=== PATIENT | female | born 1940 | race Caucasian/White ===

== ENCOUNTER 2018-01-11 12:53 | Inpatient (IN) ==
[2018-01-11] MEDS ORDERED: Sod Chloride 0.9% Inj 1,000 ML IV.SIG ONE (16:36)
--- NOTE | 2018-01-11 16:59 | XR ---
EXAM DATE: 01/11/2018 4:52 PM EST AGE/SEX: 77 years / Female INDICATIONS: Cough and shortness of breath. CLINICAL DATA: This is the patient's initial encounter. Patient reports that signs and symptoms have been present for 1 week and indicates a pain score of 0/10. MEDICAL/SURGICAL HISTORY: Carcinoma, lung. . Infusaport. COMPARISON: No prior exams available for comparison. FINDINGS: Right IJ [id number] in place. Patchy bilateral lower lobe airspace disease with likely small right pleural effusion. Cardiomediastinal contours are within normal limits given portable technique. Prio r complex thoracolumbar fixation partially imaged on this exam. Osseous structures are otherwise artur sly intact. CONCLUSION: 1. Small right pleural effusion with associated patchy right lower lobe airspace disease. 2. Mild patchy left lower lobe airspace disease which may reflect atelectasis. Electronically signed by: Meir Castanon MD 01/11/2018 4:58 PM EST
--- NOTE | 2018-01-11 17:13 | ED ---
HPI General Chief complaint: Weakness Stated complaint: weakness Time Seen by Provider: 01/11/18 15:37 Source: patient Mode of arrival: ambulatory Limitations: no limitations History of Present Illness HPI Narrative: 77-year-old female presents the ED for evaluation of worsening shortness of breath and weakness. 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 She states that she lives full-time in [place] and has been undergoing treatment there until October. She endorses several rounds of chemotherapy with different medications. She states that despite this chemotherapy her lung mass has continued to grow. She states that she saw her oncologist just before coming to [place] for the winter. She told him at that time that she does not wish to continue with chemotherapy treatment. She arrived here in mid December. On presentation she endorses occasional dizziness. She endorses chronic nonproductive cough. She endorses some swelling in the lower extremities. She endorses decreased appetite. She endorses dark stools which she attributes to taking a daily iron pill. She denies fever, chills, headaches, nausea, vomiting, chest pain, palpitations, abdominal pain, dysuria, weakness of the extremities. I spoke with the patient regarding her expectations for today's visit. She is hoping to be discharged. She is open to evaluation by another oncologist. She does not want hospice services at this time. Related Data Home Medications Medication Instructions Recorded Confirmed No Known Home Medications 01/11/18 01/11/18 Allergies Allergy/AdvReac Type Severity Reaction Status Date / Time naproxen Allergy Severe rash Verified 01/11/18 20:09 levofloxacin Allergy Unknown Rash Verified 01/11/18 20:09 Review of Systems ROS: all other systems reviewed are negative [facility] Medical History Medical History Breast cancer (Acute) Lung cancer (Acute) Surgical History Surgical History History of back surgery (Acute) History of surgery on arm (Acute) Social History Social History Substance History: No History of Abuse Smoking Status: Former smoker How Often Do You Have a Drink Containing Alcohol: 2 to 4 times a month Recent Travel in [facility] within the Last 8 Weeks: No Recent Out of Country Travel within the Last 8 Weeks: No Immunization History Tetanus Immunization: Unsure Exam Narrative Exam Narrative: GENERAL: Well-nourished, thin white female in no acute distress. SKIN: Focused skin assessment warm/dry. Port implanted in the right chest. HEAD: Atraumatic. Normocephalic. EYES: Pupils equal and round. No scleral icterus. No injection or drainage. ENT: No nasal bleeding or discharge. Mucous membranes pink and moist. NECK: Trachea midline. No JVD. CARDIOVASCULAR: Regular rate and rhythm. No murmur appreciated. RESPIRATORY: No accessory muscle use. Clear to auscultation. Diminished breath sounds in RLL. GASTROINTESTINAL: Abdomen soft, non-tender, nondistended. Hepatic and splenic margins not palpable. MUSCULOSKELETAL: No obvious deformities. No clubbing. No cyanosis. Trace edema in the bilateral lower extremities. NEUROLOGICAL: Awake and alert. No obvious cranial nerve deficits. Motor grossly within normal limits. Normal speech. PSYCHIATRIC: Appropriate mood and affect; insight and judgment normal. Course Initial Documented Vital Signs Temperature 98.6 F 01/11/18 12:59 Pulse Rate 131 H 01/11/18 12:59 Respiratory Rate 16 01/11/18 12:59 Blood Pressure 162/75 H 01/11/18 12:59 Pulse Oximetry 98 01/11/18 12:59 Last Documented Vital Signs Temperature 98.6 F 01/11/18 12:59 Pulse Rate 108 H 01/11/18 19:00 Respiratory Rate 20 01/11/18 19:00 Blood Pressure 143/80 H 01/11/18 19:00 Pulse Oximetry 94 L 01/11/18 19:54 Medical Decision Making [facility] Narrative Medical decision making narrative: 77-year-old female with PMH of stage IV lung cancer presents the ED for evaluation of worsening dyspnea on exertion, decreased appetite and weakness. Patient lives full-time in [place] and mcnulty in [place]. She endorses undergoing several rounds of chemotherapy but states that she told her oncologist at last visit that she did not want any more treatment. She does have a DNR she states is with her nephew who is in [place]. She declines hospice at this time. She is open to oncology consult. Patient's tachycardic and hypertensive on presentation. O2 sats 94% on room air with respiratory rate of 20. On exam there is greatly diminished lung sounds in the right lower lobe. IV was established. Patient was administered a liter normal saline. Basic lab work without acute findings. Chest x-ray concerning for pneumonia. Patient was administered vancomycin, azithromycin and cefepime. CTA reveals mediastinal tumor with occlusion of the bronchus and collapse of the right lower lobe. I discussed the results of the workup with the patient as well as the recommendation for admission. Patient and her family are agreeable. Oncology consult placed. I spoke with Dr. Hou who agrees to accept the patient to the medicine service. The patient's medical record was requested from [facility] and has been scanned into the record. Medical Screen Exam Complete: Yes Emergency Medical Condition: Yes Medical Records Medical records reviewed: Yes I reviewed the patient's medical records. Medical records arrived from [facility] clinic. Primary care is Karthikeyan Noland, oncologist Fabio Campbell. Primary diagnosis adenocarcinoma of lung, stage IV. Lab work on 11/03 reveals hemoglobin of 9.3. This was scanned into the patient's record here. Lab Data Result diagrams: 01/11/18 17:21 01/11/18 17:21 Lab Results 01/11/18 01/11/18 01/11/18 Range/Units 17:21 17:21 17:21 WBC 9.1 (4.0-11.0) th/mm3 RBC 2.80 L (4.00-5.30) mil/mm3 Hgb 8.6 L (11.6-15.3) gm/dL Hct 23.9 L (35.0-46.0) % MCV 85.3 (80.0-100.0) fL MCH 30.6 (27.0-34.0) pg MCHC 35.8 (32.0-36.0) % RDW 17.5 H (11.6-17.2) % Plt Count 372 (150-450) th/mm3 MPV 6.4 L (7.0-11.0) fL Neut % (Auto) 65.6 (16.0-70.0) % Lymph % (Auto) 25.4 (9.0-44.0) % Sabine % (Auto) 8.3 H (0.0-8.0) % Eos % (Auto) 0.3 (0.0-4.0) % Baso % (Auto) 0.4 (0.0-2.0) % Neut # (Auto) 5.9 (1.8-7.7) th/mm3 Lymph # (Auto) 2.3 (1.0-4.8) th/mm3 Sabine # (Auto) 0.8 (0.0-0.9) th/mm3 Eos # (Auto) 0.0 (0.0-0.4) th/mm3 Baso # (Auto) 0.0 (0.0-0.2) th/mm3 WBC Differential . Differential Comment Auto diff final PT 11.9 H (9.8-11.6) sec INR 1.2 Ratio Sodium 130 L (136-145) meq/L Potassium 3.7 (3.5-5.1) meq/L Chloride 94 L (98-107) meq/L Carbon Dioxide 26.1 (21.0-32.0) meq/L Anion Gap 10 (5-15) meq/L BUN 15 (7-18) mg/dL Creatinine 0.70 (0.50-1.00) mg/dL Estimated GFR 82 L (>89) mL/min Random Glucose 86 (74-106) mg/dL Calcium 8.7 (8.5-10.1) mg/dL Magnesium 1.6 (1.5-2.5) mg/dL Total Bilirubin 0.5 (0.2-1.0) mg/dL AST 33 (15-37) U/L ALT 21 (10-53) U/L Alkaline Phosphatase 89 (45-117) U/L Troponin I Less than 0.02 L (0.02-0.05) ng/mL B-Natriuretic Peptide (0-100) pg/mL Total Protein 8.0 (6.4-8.2) g/dL Albumin 2.4 L (3.4-5.0) g/dL 01/11/18 Range/Units 17:21 WBC (4.0-11.0) th/mm3 RBC (4.00-5.30) mil/mm3 Hgb (11.6-15.3) gm/dL Hct (35.0-46.0) % MCV (80.0-100.0) fL MCH (27.0-34.0) pg MCHC (32.0-36.0) % RDW (11.6-17.2) % Plt Count (150-450) th/mm3 MPV (7.0-11.0) fL Neut % (Auto) (16.0-70.0) % Lymph % (Auto) (9.0-44.0) % Sabine % (Auto) (0.0-8.0) % Eos % (Auto) (0.0-4.0) % Baso % (Auto) (0.0-2.0) % Neut # (Auto) (1.8-7.7) th/mm3 Lymph # (Auto) (1.0-4.8) th/mm3 Sabine # (Auto) (0.0-0.9) th/mm3 Eos # (Auto) (0.0-0.4) th/mm3 Baso # (Auto) (0.0-0.2) th/mm3 WBC Differential Differential Comment PT (9.8-11.6) sec INR Ratio Sodium (136-145) meq/L Potassium (3.5-5.1) meq/L Chloride (98-107) meq/L Carbon Dioxide (21.0-32.0) meq/L Anion Gap (5-15) meq/L BUN (7-18) mg/dL Creatinine (0.50-1.00) mg/dL Estimated GFR (>89) mL/min Random Glucose (74-106) mg/dL Calcium (8.5-10.1) mg/dL Magnesium (1.5-2.5) mg/dL Total Bilirubin (0.2-1.0) mg/dL AST (15-37) U/L ALT (10-53) U/L Alkaline Phosphatase (45-117) U/L Troponin I (0.02-0.05) ng/mL B-Natriuretic Peptide 35 (0-100) pg/mL Total Protein (6.4-8.2) g/dL Albumin (3.4-5.0) g/dL Imaging Data Radiologist's impression: Chest CTA 01/11/18 16:36 CONCLUSION: 1. No CT evidence for pulmonary artery embolism as questioned. 2. Large right perihilar/central lung mass with resultant obstruction of the right lower lobe bronchus and right lower lobe collapse. 3. Associated small to moderate right-sided pleural effusion with bulky right hilar and mediastinal adenopathy. 4. 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 Head CT 01/11/18 16:36 CONCLUSION: 1. Senescent changes with mild to moderate periventricular ischemic white matter demyelination. 2. Otherwise, no acute intracranial abnormality. . Chest X-Ray 01/11/18 16:38 CONCLUSION: 1. Small right pleural effusion with associated patchy right lower lobe airspace disease. 2. Mild patchy left lower lobe airspace disease which may reflect atelectasis. Discharge Plan Discharge Disposition Patient Disposition: 30 Still Patient Physicians Team ED Provider: Wade Morrison ED Midlevel Provider: Sarah Chacon Primary Care Provider: UNKNOWN, Attending Provider: Jori Hou Other Providers: Vicky William ; Rajeev Aldrich Status ED Status: Admitted Observation Patient
[2018-01-11] MEDS ORDERED: Heparin Central Flush 100 UNIT/ML 5 ML Vial IV.FLUSH PRN ×2 (17:17)
[2018-01-11 17:51] LABS: Baso % (Auto) 0.4 % (0.0-2.0); Eos % (Auto) 0.3 % (0.0-4.0); Hematocrit 23.9 % (35.0-46.0); Hemoglobin 8.6 gm/dL (11.6-15.3); Lymph # (Auto) 2.3 th/mm3 (1.0-4.8); Lymph % (Auto) 25.4 % (9.0-44.0); Mean Corpuscular HGB Conc 35.8 % (32.0-36.0); Mean Corpuscular Hemoglobin 30.6 pg (27.0-34.0); Mean Corpuscular Volume 85.3 fL (80.0-100.0); Mean Platelet Volume 6.4 fL (7.0-11.0); Mono # (Auto) 0.8 th/mm3 (0.0-0.9); Mono % (Auto) 8.3 % (0.0-8.0); Neut # (Auto) 5.9 th/mm3 (1.8-7.7); Neut % (Auto) 65.6 % (16.0-70.0); Platelet Count 372 th/mm3 (150-450); Red Cell Distribution Width 17.5 % (11.6-17.2); White Blood Count 9.1 th/mm3 (4.0-11.0)
[2018-01-11 18:01] LABS: INR 1.2 Ratio; Prothrombin Time 11.9 sec (9.8-11.6)
[2018-01-11 18:09] LABS: Alanine Aminotransferase 21 U/L (10-53); Albumin 2.4 g/dL (3.4-5.0); Anion Gap 10 meq/L (5-15); Aspartate Aminotransferase 33 U/L (15-37); Blood Urea Nitrogen 15 mg/dL (7-18); Calcium 8.7 mg/dL (8.5-10.1); Carbon Dioxide 26.1 meq/L (21.0-32.0); Chloride 94 meq/L (98-107); Glomerular Filtration Rate 82 mL/min (>89); Glucose,Random 86 mg/dL (74-106); Magnesium 1.6 mg/dL (1.5-2.5); Potassium 3.7 meq/L (3.5-5.1); Sodium 130 meq/L (136-145)
[2018-01-11 18:13] LABS: Alkaline Phosphatase 89 U/L (45-117)
[2018-01-11] MEDS ORDERED: Vancomycin Inj 1,500 MG in Sodium Chlor 0.9% Inj 500 ML IV.SIG ONE (18:38)
[2018-01-11] MEDS ORDERED: Azithromycin Inj 500 MG in Sodium Chlor 0.9% Inj 250 ML IV.SIG ONE (18:38)
--- NOTE | 2018-01-11 19:39 | CT ---
EXAM DATE: 01/11/2018 7:35 PM EST AGE/SEX: 77 years / Female INDICATIONS: Dizziness today. CLINICAL DATA: This is the patient's initial encounter. Patient reports that signs and symptoms have been present for 1 day and indicates a pain score of 7/10. MEDICAL/SURGICAL HISTORY: Carcinoma, breast. Carcinoma, lung. None. RADIATION DOSE: 51.10 CTDI (mGy) COMPARISON: No prior exams available for comparison. TECHNIQUE: CT of the head without contrast. Using automated exposure control and adjustment of the mA and/or kV according to patient size, radiation dose was kept as low as reasonably achievable to ob tain optimal diagnostic quality images. DICOM format image data is available electronically for revi ew and comparison. FINDINGS: Cerebrum: Mild diffuse cerebral atrophy. The ventricles are normal for degree of atrophy. Moderate p eriventricular white matter hypodensities. No evidence of midline shift, mass lesion, hemorrhage or a cute infarction. No extraaxial fluid collections are seen. Posterior Fossa: The cerebellum and brainstem are intact. The 4th ventricle is midline. The cerebe llopontine angle is unremarkable. Extracranial: The visualized portion of the orbits is intact. Skull: The calvaria is intact. No evidence of skull fracture. CONCLUSION: 1. Senescent changes with mild to moderate periventricular ischemic white matter demyelination. 2. Otherwise, no acute intracranial abnormality. . Electronically signed by: Meir Castanon MD 01/11/2018 7:38 PM EST
--- NOTE | 2018-01-11 19:55 | CT ---
EXAM DATE: 01/11/2018 7:45 PM EST AGE/SEX: 77 years / Female INDICATIONS: Shortness of breath. CLINICAL DATA: This is the patient's initial encounter. Patient reports that signs and symptoms have been present for 1 day and indicates a pain score of 7/10. MEDICAL/SURGICAL HISTORY: Carcinoma, breast. Carcinoma, lung. None. RADIATION DOSE: 11.23 CTDI (mGy) COMPARISON: C, CHEST 1V SINGLE AP, 01/11/2018. . TECHNIQUE: Volumetric scanning was performed using a multi-row detector CT scanner during bolus infu caroline of 50 ml Omnipaque 350 (iohexol) nonionic water-soluble contrast as a single exam dose. The rico a was post processed with a variety of visualization algorithms including full volume maximum intensi ty projection and sliding thin slab reformation. Using automated exposure control and adjustment of the mA and/or kV according to patient size, radiation dose was kept as low as reasonably achievable t o obtain optimal diagnostic quality images. DICOM format image data is available electronically for review and comparison. FINDINGS: Pulmonary Arteries: No filling defects are seen in the pulmonary arteries through the segmental vess els. The main pulmonary artery is normal in diameter. Lung: Right lower lobe collapse without air bronchograms. Pleura: [id number] right pleural effusion. Mediastinum: There is a large right perihilar mass with resultant obstruction of the right lower lob e bronchus. Associated right hilar and mediastinal adenopathy with nodes measuring up to 2.3 cm. Asym metrical pericardial effusion. Heart is otherwise unremarkable. Osseous Structures: Large destructive mass involving the third posterior rib. Posterior thoracolumbar fixation hardware partially imaged. Other: Visulaized upper abdomen is unremarkable. CONCLUSION: 1. No CT evidence for pulmonary artery embolism as questioned. 2. Large right perihilar/central lung mass with resultant obstruction of the right lower lobe bronch us and right lower lobe collapse. 3. Associated small to moderate right-sided pleural effusion with bulky right hilar and mediastinal adenopathy. 4. 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 Electronically signed by: Meir Castanon MD 01/11/2018 7:54 PM EST
[2018-01-11] MEDS ORDERED: Vancomycin Consult Pharmacy OTHER PRN (20:23)
[2018-01-11] MEDS ORDERED: Bisacodyl 10 MG Supp RECTAL PRN (20:28)
[2018-01-12] MEDS: Piperacil/Tazo 4.5 GM Premix 4.5 GM/100 ML BAG IV.SIG SCH ×5 (02:43→20:42)
--- NOTE | 2018-01-12 05:10 | ECG ---
Date Performed: 01/11/2018 Time Performed: 20:29:56 PTAGE: 77 years EKG: SINUS TACHYCARDIA ABNORMAL RHYTHM ECG No significant change from prior electrocardiogram. PREVIOUS TRACING : 03/03/2008 20.14 DOCTOR: Aric Monahan Interpretating Date/Time 01/12/2018 05:09:21
[2018-01-12 08:12] LABS: Baso % (Auto) 0.5 % (0.0-2.0); Eos # (Auto) 0.1 th/mm3 (0.0-0.4); Eos % (Auto) 0.9 % (0.0-4.0); Hematocrit 23.8 % (35.0-46.0); Lymph # (Auto) 1.4 th/mm3 (1.0-4.8); Lymph % (Auto) 19.4 % (9.0-44.0); Mean Corpuscular HGB Conc 33.5 % (32.0-36.0); Mean Corpuscular Hemoglobin 28.7 pg (27.0-34.0); Mean Corpuscular Volume 85.8 fL (80.0-100.0); Mean Platelet Volume 6.2 fL (7.0-11.0); Mono # (Auto) 0.5 th/mm3 (0.0-0.9); Mono % (Auto) 7.1 % (0.0-8.0); Neut # (Auto) 5.1 th/mm3 (1.8-7.7); Neut % (Auto) 72.1 % (16.0-70.0); Platelet Count 374 th/mm3 (150-450); Red Blood Count 2.77 mil/mm3 (4.00-5.30); Red Cell Distribution Width 17.6 % (11.6-17.2)
[2018-01-12 08:44] LABS: Alanine Aminotransferase 15 U/L (10-53); Albumin 2.2 g/dL (3.4-5.0); Anion Gap 8 meq/L (5-15); Aspartate Aminotransferase 30 U/L (15-37); Blood Urea Nitrogen 12 mg/dL (7-18); Calcium 8.6 mg/dL (8.5-10.1); Carbon Dioxide 25.1 meq/L (21.0-32.0); Chloride 96 meq/L (98-107); Glomerular Filtration Rate 79 mL/min (>89); Glucose,Random 81 mg/dL (74-106); Potassium 3.5 meq/L (3.5-5.1); Sodium 129 meq/L (136-145)
[2018-01-12 08:48] LABS: Alkaline Phosphatase 74 U/L (45-117); Total Protein 7.1 g/dL (6.4-8.2)
--- NOTE | 2018-01-12 08:48 | P.HP ---
History of Present Illness Primary Care Physician: UNKNOWN Chief Complaint: Weakness History of Present Illness: This is a pleasant 77 y/o Female who came to Emergency room for evaluation of worsening Shortness of breath and weakness. 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 She states that she lives full-time in [place] and has been undergoing treatment there until October. She endorses several rounds of chemotherapy with different medications. She states that despite this chemotherapy her lung mass has continued to grow. She states that she saw her oncologist just before coming to [place] for the winter. She told him at that time that she does not wish to continue with chemotherapy treatment. She arrived here in mid December. On presentation she endorses occasional dizziness. She endorses chronic nonproductive cough. She endorses some swelling in the lower extremities. She endorses decreased appetite. She endorses dark stools which she attributes to taking a daily iron pill. She denies fever, chills, headaches, nausea, vomiting , chest pain, palpitations, abdominal pain, dysuria, weakness of the extremities. I spoke with the patient regarding her expectations for today's visit. She is hoping to be discharged. She is open to evaluation by another oncologist. She does not want hospice services at this time. discussed with patient and Nurse Miss Christianson, also her Daughter in law Mrs. Audrey López in the room patient accepted for Hospice. Inpatient Certification: I certify that the inpatient services were ordered in accordance with Medicare regulations governing the order. This includes certification that hospital inpatient services are reasonable and necessary and in the case of services not specified as inpatient-only under 42 CFR 419.22(n), that they are appropriately provided as inpatient services in accordance to with the 2-midnight benchmark under 43 CFR 412.3(e) Estimated Total Length of Stay (Days): 3 Plans for Post Hospital Care: Home Review of Systems All other systems reviewed negative except as stated in HPI PMFSH - History History Provided By: Patient - Medical History Medical History: Medical History (Last Reviewed 01/11/18 @ 17:14 by YUNIEL Barrios) Breast cancer Lung cancer - Surgical History Surgical History: Surgical History (Last Reviewed 01/11/18 @ 17:14 by YUNIEL Barrios) History of back surgery History of surgery on arm - Family History Family History: Family History (Last Updated 01/12/18 @ 10:05 by Navin Bennett MD) Other Family history normal - Tobacco History Second Hand Smoke Exposure: No Smoking Status: Former smoker Tobacco Type: Cigarettes - Alcohol History How Often Do You Have a Drink Containing Alcohol: Monthly or less - Substance Use History Substance History: No History of Abuse - Travel History Recent Travel in the [place] Within the Last 8 Weeks: No Recent Travel Out of the Country Within the Last 8 Weeks: No - Immunization History Tetanus Immunization: Unsure Hx Influenza Vaccine This Season: Yes Medications and Allergies Active Medications: Active Medications Al Hydroxide/Mg Hydroxide (Milk Of Magnesia Liq) 30 ml PO Q12H PRN PRN Reason: Mild Constipation Bisacodyl (Dulcolax Supp) 10 mg RECTAL DAILY PRN PRN Reason: SEVERE CONSITIPATION Heparin Sodium (Porcine) (Heparin Central Flush) 250 unit IV.FLUSH PRN PRN PRN Reason: Flush Infusapot Heparin Sodium (Porcine) (Heparin Central Flush) 500 unit IV.FLUSH PRN PRN PRN Reason: Flush infusaport Piperacillin/Tazobactam/Dextrose (Zosyn 4.5 Gm Premix) 4.5 gm in 100 mls @ 200 mls/hr IV.SIG Q6H NIC Last Admin: 01/12/18 02:44 Dose: 200 mls/hr Lactulose (Lactulose Liq) 30 ml PO DAILY PRN PRN Reason: SEVERE CONSITIPATION Pharmacy Profile Note (Vancomycin Consult Pharmacy) 1 each OTHER UNSCH PRN PRN Reason: Pharmacy to dose Sennosides (Senokot) 17.2 mg PO Q12H PRN PRN Reason: Moderate Constipation Sodium Chloride (Ns Flush) 2 ml IV.FLUSH PRN PRN PRN Reason: FLUSH AFTER USING IV ACCESS Sodium Chloride (Ns Flush) 5 ml IV.FLUSH PRN PRN PRN Reason: Flush Infusaport Allergies Allergy/AdvReac Type Severity Reaction Status Date / Time naproxen Allergy Severe rash Verified 01/11/18 20:09 levofloxacin Allergy Unknown Rash Verified 01/11/18 20:09 Home Medications Medication Instructions Recorded Confirmed Type No Known Home Medications 01/11/18 01/11/18 History Exam Vital signs: Vital Signs 01/11/18 12:59 01/11/18 15:57 01/11/18 19:00 Temperature 98.6 F Pulse Rate 131 H 115 H 108 H Respiratory Rate 16 23 20 Blood Pressure 162/75 H 150/78 H 143/80 H Pulse Oximetry 98 96 94 L 01/11/18 19:54 01/11/18 22:25 01/12/18 00:40 Temperature 98.9 F 98.9 F Pulse Rate 108 H 107 H Respiratory Rate 18 18 Blood Pressure 136/76 129/73 Pulse Oximetry 94 L 97 96 01/12/18 05:30 01/12/18 08:00 Temperature 97.7 F 98.2 F Pulse Rate 94 H 90 Respiratory Rate 17 18 Blood Pressure 128/65 122/62 Pulse Oximetry 94 L 92 L Intake & Output 01/11/18 01/12/18 01/12/18 18:59 06:59 18:59 Intake Total 2335 / 2335 Balance 2335 / 2335 Weight 60.328 kg 60.3 kg Intake: IV 1615 / 1615 Maxipime Inj 2,000 MG In NS Inj 100 / 100 100 ML @ 200 mls/hr IV.SIG ONCE ONE Rx#:[id number] NS Inj 1,000 ML @ Wide Open IV. 1000 / 1000 SIG BOLUS ONE Rx#:[id number] Vancomycin Inj 1,500 MG In NS 515 / 515 Inj 500 ML @ 250 mls/hr IV.SIG ONCE ONE Rx#:[id number] Oral 720 / 720 Other: # Voids 2 Date of Last Bowel Movement 01/12/18 # Bowel Movements 1 Narrative: GENERAL: Well-nourished, thin white female in no acute distress. SKIN: Focused skin assessment warm/dry. Port implanted in the right chest. HEAD: Atraumatic. Normocephalic. EYES: Pupils equal and round. No scleral icterus. No injection or drainage. ENT: No nasal bleeding or discharge. Mucous membranes pink and moist. NECK: Trachea midline. No JVD. CARDIOVASCULAR: Regular rate and rhythm. No murmur appreciated. RESPIRATORY: No accessory muscle use. Clear to auscultation. Diminished breath sounds in RLL. GASTROINTESTINAL: Abdomen soft, non-tender, nondistended. Hepatic and splenic margins not palpable. MUSCULOSKELETAL: No obvious deformities. No clubbing. No cyanosis. Trace edema in the bilateral lower extremities. NEUROLOGICAL: Awake and alert. No obvious cranial nerve deficits. Motor grossly within normal limits. Normal speech. PSYCHIATRIC: Appropriate mood and affect; insight and judgment normal. Results - Labs CBC & Chem 7: 01/12/18 06:42 01/12/18 06:42 Labs: Laboratory Results - last 24 hr 01/11/18 01/11/18 01/11/18 17:21 17:21 17:21 WBC 9.1 RBC 2.80 L Hgb 8.6 L Hct 23.9 L MCV 85.3 MCH 30.6 MCHC 35.8 RDW 17.5 H Plt Count 372 MPV 6.4 L Neut % (Auto) 65.6 Lymph % (Auto) 25.4 [place] % (Auto) 8.3 H Eos % (Auto) 0.3 Baso % (Auto) 0.4 Neut # (Auto) 5.9 Lymph # (Auto) 2.3 [place] # (Auto) 0.8 Eos # (Auto) 0.0 Baso # (Auto) 0.0 WBC Differential . Differential Comment Auto diff final PT 11.9 H INR 1.2 Sodium 130 L Potassium 3.7 Chloride 94 L Carbon Dioxide 26.1 Anion Gap 10 BUN 15 Creatinine 0.70 Estimated GFR 82 L Random Glucose 86 Calcium 8.7 Magnesium 1.6 Total Bilirubin 0.5 AST 33 ALT 21 Alkaline Phosphatase 89 Troponin I Less than 0.02 L B-Natriuretic Peptide Total Protein 8.0 Albumin 2.4 L 01/11/18 01/12/18 17:21 06:42 WBC 7.0 RBC 2.77 L Hgb 8.0 L Hct 23.8 L MCV 85.8 MCH 28.7 MCHC 33.5 RDW 17.6 H Plt Count 374 MPV 6.2 L Neut % (Auto) 72.1 H Lymph % (Auto) 19.4 [place] % (Auto) 7.1 Eos % (Auto) 0.9 Baso % (Auto) 0.5 Neut # (Auto) 5.1 Lymph # (Auto) 1.4 [place] # (Auto) 0.5 Eos # (Auto) 0.1 Baso # (Auto) 0.0 WBC Differential . Differential Comment Auto diff final PT INR Sodium Potassium Chloride Carbon Dioxide Anion Gap BUN Creatinine Estimated GFR Random Glucose Calcium Magnesium Total Bilirubin AST ALT Alkaline Phosphatase Troponin I B-Natriuretic Peptide 35 Total Protein Albumin - Imaging Impressions Chest CTA 01/11/18 16:36 CONCLUSION: 1. No CT evidence for pulmonary artery embolism as questioned. 2. Large right perihilar/central lung mass with resultant obstruction of the right lower lobe bronchus and right lower lobe collapse. 3. Associated small to moderate right-sided pleural effusion with bulky right hilar and mediastinal adenopathy. 4. 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 Head CT 01/11/18 16:36 CONCLUSION: 1. Senescent changes with mild to moderate periventricular ischemic white matter demyelination. 2. Otherwise, no acute intracranial abnormality. . Chest X-Ray 01/11/18 16:38 CONCLUSION: 1. Small right pleural effusion with associated patchy right lower lobe airspace disease. 2. Mild patchy left lower lobe airspace disease which may reflect atelectasis. Caprini VTE Risk Assessment Caprini VTE Risk Assessment: Moderate/High Risk (score >= 2) Caprini Risk Assessment Model: Point Value = 1 Point Value = 2 Point Value = 3 Point Value = 5 Age 41-60 Minor surgery BMI > 25 kg/m2 Swollen legs Varicose veins or History of unexplained or recurrent spontaneous Oral contraceptives or hormone replacement Sepsis (< 1 month) Serious lung disease, including pneumonia (< 1 month) Abnormal pulmonary function Acute myocardial infarction Congestive heart failure (< 1 month) History of inflammatory bowel disease Medical patient at bed rest Age 61-74 Arthroscopic surgery Major open surgery (> 45 min) Laparoscopic surgery (> 45 min) Malignancy Confined to bed (> 72 hours) Immobilizing plaster cast Central venous access Age >= 75 History of VTE Family history of VTE Factor V Leiden Prothrombin [id number] Lupus anticoagulant Anticardiolipin antibodies Elevated serum homocysteine Heparin-induced thrombocytopenia Other congenital or acquired thrombophilia Stroke (< 1 month) Elective arthroplasty Hip, pelvis, or leg fracture Acute spinal cord injury (< 1 month) Prophylaxis Regimen: Total Risk Factor Score Risk Level Prophylaxis Regimen 0-1 Low Early ambulation 2 Moderate Order ONE of the following: *Sequential Compression Device (SCD) *Heparin 5000 units SQ BID 3-4 Higher Order ONE of the following medications: *Heparin 5000 units SQ TID *Enoxaparin/Lovenox 40 mg SQ daily (WT < 150 kg, CrCl > 30 mL/min) *Enoxaparin/Lovenox 30 mg SQ daily (WT < 150 kg, CrCl > 10-29 mL/min) *Enoxaparin/Lovenox 30 mg SQ BID (WT < 150 kg, CrCl > 30 mL/min) AND/OR *Sequential Compression Device (SCD) 5 or more Highest Order ONE of the following medications: *Heparin 5000 units SQ TID (Preferred with Epidurals) *Enoxaparin/Lovenox 40 mg SQ daily (WT < 150 kg, CrCl > 30 mL/min) *Enoxaparin/Lovenox 30 mg SQ daily (WT < 150 kg, CrCl > 10-29 mL/min) *Enoxaparin/Lovenox 30 mg SQ BID (WT < 150 kg, CrCl > 30 mL/min) AND *Sequential Compression Device (SCD) Assessment and Plan - Plan 1. Respiratory insufficiency multifactorial secondary to Stage IV Lung cancer and Pneumonia 2. 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 Associated small to moderate right- sided pleural effusion with bulky right hilar and mediastinal adenopathy. 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 Oncology and commodity specialist following. 3. Pneumonia Chest x-ray concerning for pneumonia. Patient was administered vancomycin, azithromycin and cefepime. Bronchodilator, Mucolytic, Incentive spirometry. following blood cultures, legionella antigen, Pneumococcal antigen. O2 sats 94% on room air with respiratory rate of 20. continue Vancomycin and Zosyn. DVT prophylaxis with Heparin Code Status: DNR Discussed Condition With: Patient and Nurse Miss Christianson, and her Daughter in law Mrs. Audrey López Discharge Planning: once seen by Hospice care and Palliative care.
[2018-01-12] MEDS: guaiFENesin 600 MG ER Tablet PO SCH ×2 (11:11→20:43)
[2018-01-12 13:45] LABS: Bilirubin,Urine Negative (Negative); Clarity,Urine Clear (Clear); Glucose,Urine (UA) Negative (Negative); Leukocyte Esterase,Urine Negative (Negative); Nitrite,Urine Negative (Negative); Specific Gravity,Urine 1.014 (1.002-1.035)
[2018-01-12 13:46] LABS: Color,Urine Light-Yellow (Yellw/Straw)
--- NOTE | 2018-01-12 17:33 | P.CONPAL ---
Consult Service: Palliative Care Requesting Physician: Navin Bennett Reason for Consult: a. To assist with evaluation and management of symptoms including: shortness of breath. b. To assist medical decision maker(s) with: better understanding of current medical conditions; weighing benefits/burdens of medical treatment options; making medical treatment decisions. Primary Care Provider: UNKNOWN History of Present Illness History of Present Illness: Mrs. Janee (Susie) is a 77 year old female with past medical history of Stage IV adenocarcinoma of the lung who has undergone multiple lines of chemotherapy, despite treatment she has had progression of disease. She has mets lung cancer to both lungs and left 3rd rib. She elected to forego additional chemotherapy in October 2017. She tells me at that time she decided quality of life was more important than quantity. 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 Patient presented [facility] emergency department on 01/11/18 with reports of worsening shortness of breath and weakness. She has had chronic nonproductive cough, dizziness, bilateral LE edema and decreased appetite. She denied any fever, N/V or other symptoms. Intitial evaluation revealed: * WBC 9.1, hemoglobin 8.6, hematocrit 23.9, platelet count 372, neutrophils 65.6 % * PT 11.9, INR 11.2 * Sodium 130, potassium 3.7, chloride 94, carbon dioxide 26.1, BUN 15, creatinine 0.7, GFR 82, glucose 86, calcium 8.7, magnesium 1.6 * AST 33, ALT 21, total bilirubin 0.5, alkaline phosphatase 89 * Troponin less than 0.02, BNP 35 * Total protein 8.0, albumin 2.4 * CTA chest-negative pulmonary embolism, large right perihilar/central lung mass with resultant obstruction in the right lower lobe bronchus and right lower lobe collapse, small to moderate right-sided pleural effusion with bulky right hilar and mediastinal adenopathy, osseous metastatic disease with large destructive mass involving the third posterior rib. * CT head-senescent changes with mild to moderate periventricular ischemic white matter demyelination, no acute intracranial abnormality. * Chest x-ray -small right pleural effusion with associated patchy right lower lobe airspace disease, mild patchy left lower lobe airspace disease may reflect atelectasis. * EKG-sinus tachycardia Patient was admitted to hospitalist service with respiratory insufficiency secondary to progressive lung cancer, possible pneumonia. Patient was started on antibiotics, bronchodilator and incentive spirometry oxygen saturation 94% on room air. Hospice was consulted. Palliative care was consulted to assist with further clarification of treatment goals. Palliative care met with patient and her . Patient has elected transition to comfort focused care prior to coming to [place]. She reports that she plans to go home (here in [place]) because they have some things to get done before they can return to [place]. Ultimately she will return to [place] in the coming weeks, if physically able. She elects DNR, DNR order completed and placed on chart for her to go home with. She would like to have hospice support and services while here in [place] in case she has further decline. Hospice was consulted, notified to arrange meeting with patient and her spouse for DC planning. Review of Systems Constitutional: Reports anorexia, Reports daytime sleepiness, Reports fatigue, Reports lack of energy, Reports weakness, Reports weight loss Eyes: Reports requires corrective lenses Ears, Nose, Mouth, and Throat: Reports dizziness, Reports dry mouth Cardiovascular: Reports shortness of breath, Reports shortness of breath with activity, Reports shortness of breath when lying down Respiratory: Reports cough, Reports shortness of breath, Reports shortness of breath with activity Gastrointestinal: Denies abdominal pain, Denies belching, Denies black, tarry stools, Denies bloating, Denies bright, red blood in stools, Denies change in bowel habits, Denies constant urge to pass stool, Denies change in stools, Denies coffee ground vomit, Denies constipation, Denies cramping, Denies difficulty swallowing, Denies excessive passing of gas, Denies feeling full early, Denies heartburn, Denies incontinent of stools, Denies loose stools, Denies nausea, Denies pain with swallowing, Denies vomiting, Denies vomiting blood, Denies other Genitourinary: Denies abnormal periods, Denies abnormal vaginal bleeding, Denies absent period, Denies bleeding between periods, Denies blood in urine, Denies difficulty starting urination, Denies difficulty urinating, Denies dribbling after urination, Denies frequent nighttime urination, Denies genital itching, Denies genital lesions, Denies heavy periods, Denies hot flashes, Denies light periods, Denies nipple discharge, Denies painful intercourse, Denies painful periods, Denies painful urination, Denies pelvic pain, Denies prolapse symptoms, Denies sexual problems, Denies side pain, Denies urinary incontinence, Denies urinary urgency, Denies vaginal discharge, Denies vaginal dryness, Denies vaginal odor, Denies vaginal itching, Denies other Musculoskeletal: Reports back pain Psychiatric: Reports change in appetite (Decreased) Hematologic/Lymphatic: Reports easy bruising PMFSH - History History Provided By: Patient - Medical History Medical History: Medical History (Last Reviewed 01/11/18 @ 17:14 by YUNIEL Barrios) Breast cancer Lung cancer - Surgical History Surgical History: Surgical History (Last Reviewed 01/11/18 @ 17:14 by YUNIEL Barrios) History of back surgery History of surgery on arm - Family History Family History: Family History (Last Updated 01/12/18 @ 10:05 by Navin Bennett MD) Other Family history normal - Social History I have reviewed the patient's Social History: Yes - Tobacco History Second Hand Smoke Exposure: No Smoking Status: Former smoker Tobacco Type: Cigarettes - Alcohol History How Often Do You Have a Drink Containing Alcohol: Never - Substance Use History Substance History: No History of Abuse - Travel History Recent Travel in the [place] Within the Last 8 Weeks: No Recent Travel Out of the Country Within the Last 8 Weeks: No - Immunization History Tetanus Immunization: Unsure Hx Influenza Vaccine This Season: Yes Medications and Allergies Active Medications: Active Medications Al Hydroxide/Mg Hydroxide (Milk Of Martin Boo) 30 ml PO Q12H PRN PRN Reason: Mild Constipation Albuterol (Duoneb Neb (Taisha)) 1 ampul NEB Q4HR NEB TAISHA Last Admin: 01/12/18 14:08 Dose: 1 ampul Bisacodyl (Dulcolax Supp) 10 mg RECTAL DAILY PRN PRN Reason: SEVERE CONSITIPATION Guaifenesin (Mucinex Er) 600 mg PO BID TAISHA Last Admin: 01/12/18 11:11 Dose: 600 mg Heparin Sodium (Porcine) (Heparin Central Flush) 250 unit IV.FLUSH PRN PRN PRN Reason: Flush Infusapot Heparin Sodium (Porcine) (Heparin Central Flush) 500 unit IV.FLUSH PRN PRN PRN Reason: Flush infusaport Piperacillin/Tazobactam/Dextrose (Zosyn 4.5 Gm Premix) 4.5 gm in 100 mls @ 200 mls/hr IV.SIG Q6H TAISHA Last Admin: 01/12/18 16:38 Dose: 200 mls/hr Vancomycin HCl 1,000 mg/ (Sodium Chloride) 250 mls @ 250 mls/hr IV.SIG Q24H TAISHA Lactulose (Lactulose Liq) 30 ml PO DAILY PRN PRN Reason: SEVERE CONSITIPATION Miscellaneous Information ([facility] Ordered Lab Info) 0 each OTHER ONCE ONE Stop: 01/14/18 19:46 Pharmacy Profile Note (Vancomycin Consult Pharmacy) 1 each OTHER UNSCH PRN PRN Reason: Pharmacy to dose Sennosides (Senokot) 17.2 mg PO Q12H PRN PRN Reason: Moderate Constipation Sodium Chloride (Ns Flush) 2 ml IV.FLUSH PRN PRN PRN Reason: FLUSH AFTER USING IV ACCESS Sodium Chloride (Ns Flush) 5 ml IV.FLUSH PRN PRN PRN Reason: Flush Infusaport Allergies Allergy/AdvReac Type Severity Reaction Status Date / Time naproxen Allergy Severe rash Verified 01/11/18 20:09 levofloxacin Allergy Unknown Rash Verified 01/11/18 20:09 Home Medications Medication Instructions Recorded Confirmed Type No Known Home Medications 01/11/18 01/11/18 History Advance Directives Living Will: Yes Healthcare Surrogate: Yes Health Care Surrogate Name and Number: Spouse, Reid [phone] Documented care wishes: Reportedly has standard living will and indicates she does not want life support or life prolonging measures if she has a terminal, end-stage condition. Today's verbally stated goals: Patient desires comfort focused care with hospice support. She elects DNR/DNI. Family/friends goals: Spouse supports her wishes. Ethical and Legal Issues: Patient is currently capacitated to make her own healthcare decisions. She has written advanced directives, however does not have a copy of those directives here in [place]. According to [place] statutes in the absence of written advance directives healthcare proxy decision making falls to her spouse, she indicates that he is her designated healthcare surrogate also. Physical Exam Vital Signs: Vital Signs - 24 hr 01/11/18 19:00 01/11/18 19:54 01/11/18 22:25 Temperature 98.9 F Pulse Rate 108 H 108 H Respiratory Rate 20 18 Blood Pressure 143/80 H 136/76 Pulse Oximetry 94 L 94 L 97 01/12/18 00:40 01/12/18 05:30 01/12/18 08:00 Temperature 98.9 F 97.7 F 98.2 F Pulse Rate 107 H 94 H 90 Respiratory Rate 18 17 18 Blood Pressure 129/73 128/65 122/62 Pulse Oximetry 96 94 L 92 L 01/12/18 12:00 01/12/18 14:11 Temperature 98.9 F Pulse Rate 98 H 104 H Respiratory Rate 18 16 Blood Pressure 119/64 Pulse Oximetry 92 L I&O: Intake & Output 01/10/18 01/11/18 01/12/18 01/13/18 06:59 06:59 06:59 06:59 Intake Total 2435 / 2435 100 / 100 Balance 2435 / 2435 100 / 100 Weight 60.3 kg Physical Exam: CONSTITUTIONAL/GENERAL: This is an adequately nourished patient, in no apparent distress. TUBES/LINES/DRAINS:right port SKIN: No jaundice, rashes, or lesions. Ecchymoses on upper extremities. No wounds seen anteriorly. Skin temperature appropriate. Not diaphoretic. HEAD: Atraumatic. Normocephalic. EYES: Pupils equal and round and reactive. Extraocular motions intact. No scleral icterus. No injection or drainage. Fundi not examined. ENT: Hard of hearing. Nose without bleeding or purulent drainage. Mouth dry. NECK: Trachea midline. CARDIOVASCULAR: tachycardic. RESPIRATORY/CHEST: Mildly labored respirations at rest. Diminished breath sounds on right. GASTROINTESTINAL: Abdomen soft, non-tender, nondistended. Bowel sounds present. GENITOURINARY: Without palpable bladder distension. MUSCULOSKELETAL: Extremities without clubbing, cyanosis, or edema. No joint tenderness or effusion noted. No calf tenderness. No mottling or clubbing. LYMPHATICS: No palpable cervical or supraclavicular adenopathy. NEUROLOGICAL: Awake and alert. Motor and sensory grossly within normal limits. Follows commands. Cognitively sharp. Moves all extremities. PSYCHIATRIC: No obvious anxiety/depression. no apparent hallucinations or other psychotic thought process. Diagnostic Tests Laboratory: Laboratory Results - last 72 hr 01/11/18 01/11/18 01/11/18 13:20 17:21 17:21 WBC 9.1 RBC 2.80 L Hgb 8.6 L Hct 23.9 L MCV 85.3 MCH 30.6 MCHC 35.8 RDW 17.5 H Plt Count 372 MPV 6.4 L Neut % (Auto) 65.6 Lymph % (Auto) 25.4 [place] % (Auto) 8.3 H Eos % (Auto) 0.3 Baso % (Auto) 0.4 Neut # (Auto) 5.9 Lymph # (Auto) 2.3 [place] # (Auto) 0.8 Eos # (Auto) 0.0 Baso # (Auto) 0.0 WBC Differential . Differential Comment Auto diff final PT 11.9 H INR 1.2 Sodium Potassium Chloride Carbon Dioxide Anion Gap BUN Creatinine Estimated GFR Random Glucose Calcium Magnesium Total Bilirubin AST ALT Alkaline Phosphatase Troponin I B-Natriuretic Peptide Total Protein Albumin Urine Color Light-yellow Urine Clarity Clear Urine pH 6.0 Ur Specific [place] 1.014 Urine Protein Negative Urine Glucose (UA) Negative Urine Ketones Negative Urine Occult Blood Negative Urine Nitrate Negative Urine Bilirubin Negative Urine Urobilinogen Less than 2 Ur Leukocyte Esterase Negative Urine RBC Less than 1 Urine WBC Less than 1 Micro UA Comment Culture not ind Ur Microscopic Review Not Reportable Urine Culture Comments Culture not ind 01/11/18 01/11/18 01/12/18 17:21 17:21 06:42 WBC 7.0 RBC 2.77 L Hgb 8.0 L Hct 23.8 L MCV 85.8 MCH 28.7 MCHC 33.5 RDW 17.6 H Plt Count 374 MPV 6.2 L Neut % (Auto) 72.1 H Lymph % (Auto) 19.4 [place] % (Auto) 7.1 Eos % (Auto) 0.9 Baso % (Auto) 0.5 Neut # (Auto) 5.1 Lymph # (Auto) 1.4 [place] # (Auto) 0.5 Eos # (Auto) 0.1 Baso # (Auto) 0.0 WBC Differential . Differential Comment Auto diff final PT INR Sodium 130 L Potassium 3.7 Chloride 94 L Carbon Dioxide 26.1 Anion Gap 10 BUN 15 Creatinine 0.70 Estimated GFR 82 L Random Glucose 86 Calcium 8.7 Magnesium 1.6 Total Bilirubin 0.5 AST 33 ALT 21 Alkaline Phosphatase 89 Troponin I Less than 0.02 L B-Natriuretic Peptide 35 Total Protein 8.0 Albumin 2.4 L Urine Color Urine Clarity Urine pH Ur Specific [place] Urine Protein Urine Glucose (UA) Urine Ketones Urine Occult Blood Urine Nitrate Urine Bilirubin Urine Urobilinogen Ur Leukocyte Esterase Urine RBC Urine WBC Micro UA Comment Ur Microscopic Review Urine Culture Comments 01/12/18 06:42 WBC RBC Hgb Hct MCV MCH MCHC RDW Plt Count MPV Neut % (Auto) Lymph % (Auto) [place] % (Auto) Eos % (Auto) Baso % (Auto) Neut # (Auto) Lymph # (Auto) [place] # (Auto) Eos # (Auto) Baso # (Auto) WBC Differential Differential Comment PT INR Sodium 129 L Potassium 3.5 Chloride 96 L Carbon Dioxide 25.1 Anion Gap 8 BUN 12 Creatinine 0.72 Estimated GFR 79 L Random Glucose 81 Calcium 8.6 Magnesium Total Bilirubin 0.7 AST 30 ALT 15 Alkaline Phosphatase 74 Troponin I B-Natriuretic Peptide Total Protein 7.1 D Albumin 2.2 L Urine Color Urine Clarity Urine pH Ur Specific [place] Urine Protein Urine Glucose (UA) Urine Ketones Urine Occult Blood Urine Nitrate Urine Bilirubin Urine Urobilinogen Ur Leukocyte Esterase Urine RBC Urine WBC Micro UA Comment Ur Microscopic Review Urine Culture Comments Result Diagrams: 01/12/18 06:42 01/12/18 06:42 Imaging: Chest CTA 01/11/18 16:36 CONCLUSION: 1. No CT evidence for pulmonary artery embolism as questioned. 2. Large right perihilar/central lung mass with resultant obstruction of the right lower lobe bronchus and right lower lobe collapse. 3. Associated small to moderate right-sided pleural effusion with bulky right hilar and mediastinal adenopathy. 4. 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 Head CT 01/11/18 16:36 CONCLUSION: 1. Senescent changes with mild to moderate periventricular ischemic white matter demyelination. 2. Otherwise, no acute intracranial abnormality. . Chest X-Ray 01/11/18 16:38 CONCLUSION: 1. Small right pleural effusion with associated patchy right lower lobe airspace disease. 2. Mild patchy left lower lobe airspace disease which may reflect atelectasis. Patient/Family Conference Present at Family Conference: Met with patient and spouse. Family Conference Time: 60 Family Conference Location: Bedside Issues Discussed: * Palliative care role, purpose, approach * Additional medical, psychosocial, and spiritual history * Patients general health, functional status, and cognitive changes in the months leading up to the current hospitalization * Patient/family understanding of the current medical problems * Patient/family understanding of prognosis * Patients goals of care as best understood from advance directives and/or conversations and/or values * Current medical treatment options and benefits/burdens of those options * Likely scenarios comparing ongoing aggressive care with a transition to comfort measures only * Questions answered to the best of my ability * Palliative care contact information provided Assessment and Plan - Disease Oriented Problem List (1) Lung cancer (2) Pneumonia (3) Pleural effusion - Symptom Scale (1) Shortness of breath 0-10 Scale: Unable to quantify (2) Weakness 0-10 Scale: Unable to quantify Pertinent Non-Medical Issues: Psychosocial: Patient is to [place], second marriage. Has a niece that she raised since the age of 11. 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 Spiritual: [facility]. Welcomes transportation agent support. She reports transportation agent has been by to visit. Legal:Patient is currently capacitated to make her own healthcare decisions. She has written advanced directives, however does not have a copy of those directives here in [place]. According to [place] statutes in the absence of written advance directives healthcare proxy decision making falls to her spouse , she indicates that he is her designated healthcare surrogate also. Ethical issues impacting care: No known concerns at this time. Important Contacts: * Reid, spouse HCS: [phone] Prognosis: Mrs. Weller is a 77-year-old with metastatic lung cancer to both lungs, lymph nodes and ribs. Patient has elected not to pursue additional chemotherapy. She desires comfort focused care with hospice support. Patient is terminal. PPS 30. Hospice appropriate. Code Status: No Code DNR Plan: * Patient is currently capacitated to make her own healthcare decisions. She has written advanced directives, however does not have a copy of those directives here in [place]. According to [place] statutes in the absence of written advance directives healthcare proxy decision making falls to her spouse , she indicates that he is her designated healthcare surrogate also. * NO CODE - [place] DNR completed and placed on chart to go home with pt. * Palliative care met with patient and her . Patient has elected transition to comfort focused care prior to coming to [place]. She reports that she plans to go home (here in [place]) because they have some things to get done before they can return to [place]. Ultimately she will return to [place] in the coming weeks, if physically able. She would like to have hospice support and services while here in [place] in case she has further decline. * Hospice was consulted, notified to arrange meeting with patient and her spouse for DC planning. * Ordered Glucerna with meals per patient request. * Discussed with Dr. Bennett, case management and hospice admissions. * SYMPTOMS: Weakness. Secondary to worsening cancer. Shortness of breath: Secondary to obstructive lung mass, pleural effusion, disease progression. Has PRN nebulizers, Mucinex, incentive spirometry. Recommend dexamethasone 4 mg p.o. daily. * Palliative care number provided. * Palliative care will continue to follow throughout hospital course to assist with symptom management further clarification of treatment goals. Appreciation Thank you for the opportunity to participate in the care of Colleen Weller. Attestation Attestation: To help prompt me to consider important information that might be impacting today's encounter and assessment, information from prior notes written by myself or my colleagues may have been "brought forward" into today's note. My signature on this note, however, is an attestation that I personally performed the exam, history, and/or decision-making noted today, and, unless otherwise indicated, the interactions with patient, family, and staff as well as the review of records all occurred today. I also attest that the listed assessment and stated plan reflect my best clinical judgment today based on the combination of historical information, prior notes, and today's exam/ interactions. When time spent is documented, it refers only to time spent today by the signer, or if indicated, combined time spent today by collaborating physician/nurse practitioner.
--- NOTE | 2018-01-12 18:33 | MB ---
cc: Vicky William MD DATE: 01/12/2018 CHIEF COMPLAINT: 1. Metastatic lung cancer. 2. Pneumonia. HISTORY OF PRESENT ILLNESS: Ms. Weller is a 77-year-old lady with a known history of metastatic lung cancer. She reports that she was initially diagnosed with lung cancer in 2015. She reports that she has been treated with multiple lines of chemotherapy and immune therapy, but unfortunately, she has had side effects of these therapies and her disease has progressed. She stopped therapy due to side effects in mid summer. She reports that her and her family are in this area for the winter. She originally lives in [place]. The patient reports that she is tired and fatigued and spends the majority of her time resting in bed. REVIEW OF SYSTEMS: As above in the HPI, all others negative. PAST MEDICAL HISTORY: Lung cancer. PAST SURGICAL HISTORY: 1. Back surgery. 2. Arm surgery. FAMILY HISTORY: No known family history of malignancy. SOCIAL HISTORY: The patient reports that she is a former smoker. She has a good support system with her family. HOSPITAL MEDICATIONS: Include: 1. Zosyn. 2. Vancomycin. PHYSICAL EXAMINATION: GENERAL: Thin, chronically ill-appearing lady in no distress. HEAD: Normocephalic, atraumatic. EYES: PERRLA. EOMI. NECK: Supple. No palpable lymphadenopathy. CARDIOVASCULAR: Regular rate and rhythm. No murmurs. RESPIRATORY: Clear to auscultation bilaterally. ABDOMEN: Soft, nontender, nondistended. Bowel sounds present. EXTREMITIES: No edema. NEUROLOGIC: Grossly nonfocal. PSYCHIATRIC: Appropriate mood and affect. ASSESSMENT AND PLAN: Metastatic lung cancer, uncertain of type. The patient has previously been treated with an oncologist up in [place] with multiple lines of chemotherapy and immune therapy with side effects and progression of disease. The patient stopped therapy in August 2015. Long discussion with the patient and her family member at bedside. Discussed that she does not desire to resume treatment. Given poor performance status, she would not be a candidate for treatment. Discussed hospice and palliative care. The patient reports that she would like to speak with our palliative care team. She would consider hospice; however, she is uncertain if she wishes to stay down here in this area or to move back up to [place] where she has her family. Inpatient oncology service will continue to follow. MD Kosta Kent , 05:22 PM , 05:29 PM
[2018-01-12] MEDS ORDERED: Vancomycin Inj 1,000 MG in Sodium Chlor 0.9% Inj 250 ML IV.SIG SCH (20:00)
--- NOTE | 2018-01-12 22:07 | MB ---
cc: Rajeev Aldrich MD DATE: 01/12/2018 She has a history of CA of the lung. She was not a surgical candidate. She received immunotherapy and chemotherapy in [place]. She did not tolerate the therapy and therapy was discontinued. Now, she comes over here. She was complaining of mild shortness of breath and feeling weak and tired. She was evaluated in the emergency room. She had a CTA of the chest done. It does not show any pulmonary embolism. It shows a large right perihilar central lung mass with obstruction of the right lower lobe. She has associated moderate effusions. She has metastatic disease with a destructive lesion in the posterior throat. She has progression of the disease. PAST MEDICAL HISTORY: Hypertension, history of surgery on her arm. MEDICATIONS: She is currently takin. Dulcolax. 2. Nebulizer treatments with DuoNeb. 3. Heparin subcutaneous. 4. Zosyn IV. 5. Vancomycin IV. ALLERGIES: SHE IS ALLERGIC TO NAPROSYN AND LEVAQUIN. SOCIAL HISTORY: She has a history of smoking in the past. FAMILY HISTORY: Noncontributory. REVIEW OF SYSTEMS: She has lost weight. No headache or dizziness. Feels a little weak. PHYSICAL EXAMINATION: GENERAL: A frail, elderly female not in acute distress. VITAL SIGNS: Blood pressure 115/60, heart rate 104, respirations 16, temperature 97.5, oxygen saturation 92%. HEENT: Pupils are equal and reactive. Oral mucosa and nasal mucosa normal. NECK: Supple. JVP not raised. CHEST: Dull to percussion and decreased breath sounds at the right base. HEART: S1, S2 normal. ABDOMEN: Benign. EXTREMITIES: No edema. IMPRESSION: 1. Carcinoma of the lung with metastatic disease. She did not tolerate chemotherapy and immunotherapy and she has progression of the disease. 2. Pleural effusion. 3. Atelectasis with possible infiltrate. 4. 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 PLAN: The patient is being evaluated by hospice and palliative care. The patient has decided not to have any further treatment. She wants to go back to [place]. I offered her to have a thoracentesis done for comfort measures because she has mild shortness of breath. She is not sure if she wants to have a thoracentesis done. If she decides to have the thoracentesis, we will ask interventional radiology for the thoracentesis, although she is stable on room air. Further treatment will depend on the course in the hospital. Thank you, Dr. Bennett, for this consult. MD LONA Antonio/gigi/ , 07:39 PM , 07:46 PM
[2018-01-13] MEDS: Piperacil/Tazo 4.5 GM Premix 4.5 GM/100 ML BAG IV.SIG SCH ×4 (02:50→21:01)
--- NOTE | 2018-01-13 08:36 | P.PN ---
Subjective Interval history: This is a pleasant 77 y/o Female who came to Emergency room for evaluation of worsening Shortness of breath and weakness. 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 She states that she lives full-time in [place] and has been undergoing treatment there until October. She endorses several rounds of chemotherapy with different medications. She states that despite this chemotherapy her lung mass has continued to grow. She states that she saw her oncologist just before coming to [place] for the winter. She told him at that time that she does not wish to continue with chemotherapy treatment. She arrived here in mid December. On presentation she endorses occasional dizziness. She endorses chronic nonproductive cough. She endorses some swelling in the lower extremities. She endorses decreased appetite. She endorses dark stools which she attributes to taking a daily iron pill. She denies fever, chills, headaches, nausea, vomiting , chest pain, palpitations, abdominal pain, dysuria, weakness of the extremities. I spoke with the patient regarding her expectations for today's visit. She is hoping to be discharged. She is open to evaluation by another oncologist. She does not want hospice services at this time. discussed with patient and Nurse Miss Christianson, also her Daughter in law Mrs. Audrey López in the room patient accepted for Hospice. 01/13: Seen in her bedroom no nausea, vomit or diarrhea, discussed with patient and relatives in the room they have elected to get Thoracentesis as recommended by medical claims specialist doctor Valdemar and then will go to Hospice Physical Exam Vital signs: Vital Signs 01/12/18 12:00 01/12/18 14:11 01/12/18 16:00 Temperature 98.9 F 97.5 F L Pulse Rate 98 H 104 H 104 H Respiratory Rate 18 16 16 Blood Pressure 119/64 115/60 Pulse Oximetry 92 L 92 L 01/12/18 16:50 01/12/18 20:00 01/12/18 21:25 Temperature 98 F Pulse Rate 102 H 106 H 112 H Respiratory Rate 16 18 16 Blood Pressure 121/58 L Pulse Oximetry 92 L 01/13/18 00:00 Temperature 97.7 F Pulse Rate 115 H Respiratory Rate 18 Blood Pressure 128/59 L Pulse Oximetry 91 L Intake & Output 01/12/18 01/13/18 01/13/18 18:59 06:59 18:59 Intake Total 1160 / 1160 470 / 470 Balance 1160 / 1160 470 / 470 Intake: IV 200 / 200 350 / 350 Zosyn 4.5 GM Premix 4.5 gm In 200 / 200 100 / 100 100 ml @ 200 mls/hr IV.SIG Q6H NIC Rx#:[id number] Vancomycin Inj 1,000 MG In NS 250 / 250 Inj 250 ML @ 250 mls/hr IV.SIG Q24H NIC Rx#:[id number] Oral 960 / 960 120 / 120 Other: # Voids 3 2 Date of Last Bowel Movement 01/10/18 # Bowel Movements 1 Narrative: GENERAL: Well-nourished, thin white female in no acute distress. SKIN: Focused skin assessment warm/dry. Port implanted in the right chest. HEAD: Atraumatic. Normocephalic. EYES: Pupils equal and round. No scleral icterus. No injection or drainage. ENT: No nasal bleeding or discharge. Mucous membranes pink and moist. NECK: Trachea midline. No JVD. CARDIOVASCULAR: Regular rate and rhythm. No murmur appreciated. RESPIRATORY: No accessory muscle use. Clear to auscultation. Diminished breath sounds in RLL. GASTROINTESTINAL: Abdomen soft, non-tender, nondistended. Hepatic and splenic margins not palpable. MUSCULOSKELETAL: No obvious deformities. No clubbing. No cyanosis. Trace edema in the bilateral lower extremities. NEUROLOGICAL: Awake and alert. No obvious cranial nerve deficits. Motor grossly within normal limits. Normal speech. PSYCHIATRIC: Appropriate mood and affect; insight and judgment normal. Results - Labs CBC & Chem 7: 01/12/18 06:42 01/12/18 06:42 Laboratory Results - last 24 hr 01/11/18 01/12/18 13:20 06:42 Sodium 129 L Potassium 3.5 Chloride 96 L Carbon Dioxide 25.1 Anion Gap 8 BUN 12 Creatinine 0.72 Estimated GFR 79 L Random Glucose 81 Calcium 8.6 Total Bilirubin 0.7 AST 30 ALT 15 Alkaline Phosphatase 74 Total Protein 7.1 D Albumin 2.2 L Urine Color Light-yellow Urine Clarity Clear Urine pH 6.0 Ur Specific [place] 1.014 Urine Protein Negative Urine Glucose (UA) Negative Urine Ketones Negative Urine Occult Blood Negative Urine Nitrate Negative Urine Bilirubin Negative Urine Urobilinogen Less than 2 Ur Leukocyte Esterase Negative Urine RBC Less than 1 Urine WBC Less than 1 Micro UA Comment Culture not ind Ur Microscopic Review Not Reportable Urine Culture Comments Culture not ind - Imaging Chest CTA 01/11/18 16:36 CONCLUSION: 1. No CT evidence for pulmonary artery embolism as questioned. 2. Large right perihilar/central lung mass with resultant obstruction of the right lower lobe bronchus and right lower lobe collapse. 3. Associated small to moderate right-sided pleural effusion with bulky right hilar and mediastinal adenopathy. 4. 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 Head CT 01/11/18 16:36 CONCLUSION: 1. Senescent changes with mild to moderate periventricular ischemic white matter demyelination. 2. Otherwise, no acute intracranial abnormality. . Chest X-Ray 01/11/18 16:38 CONCLUSION: 1. Small right pleural effusion with associated patchy right lower lobe airspace disease. 2. Mild patchy left lower lobe airspace disease which may reflect atelectasis. - Procedures None Assessment and Plan - Plan 1. Respiratory insufficiency multifactorial secondary to Stage IV Lung cancer and Pneumonia 2. Stage IV Lung cancer who came to ER with Worsening Dyspnea on exertion, and weakness, She lives [place] in [place] She is DNR, Declined Hospice on this admission and was open to Oncology consult, tachycardic and Hypertensive on admission Her record was received from [facility], her Primary Care Physician Doctor Karthikeyan Noland, pst specialist Doctor Fabio Campbell, CTA reveals Large right perihilar/central lung mass with resultant obstruction of the right lower lobe bronchus and right lower lobe collapse. Associated small to moderate right- sided pleural effusion with bulky right hilar and mediastinal adenopathy. 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 Oncology and medical claims specialist following. 3. Pneumonia Chest x-ray concerning for pneumonia. Patient was administered vancomycin, azithromycin and cefepime. Bronchodilator, Mucolytic, Incentive spirometry. following blood cultures, legionella antigen, Pneumococcal antigen. O2 sats 94% on room air with respiratory rate of 20. continue Vancomycin and Zosyn. recommended by medical claims specialist for Thoracentesis after the procedure the patient wants to go on Hospice. DVT prophylaxis with Heparin Code Status: DNR Discussed Condition With: Patient and Nurse Miss Cobian and Daughter in the room Discharge Planning: Awaiting final by Hospice arrangements.
[2018-01-13] MEDS: guaiFENesin 600 MG ER Tablet PO SCH ×2 (09:31→21:01)
--- NOTE | 2018-01-13 16:51 | XR ---
EXAM DATE: 01/13/2018 4:48 PM EST AGE/SEX: 77 years / Female INDICATIONS: Post right thoracentesis CLINICAL DATA: This is the patient's initial encounter. Patient reports that signs and symptoms have been present for 1 day and indicates a pain score of 5/10. MEDICAL/SURGICAL HISTORY: Carcinoma, lung. . Infus[place]ort COMPARISON: C, CHEST 1V SINGLE AP, 01/11/2018. . FINDINGS: Lungs are hypoaerated. Improved aeration is seen in the right lung base following thoracentesis. Ther e is no evidence of pneumothorax. Mild right basilar airspace disease remains evident. Heart and mediastinal structures are stable. Right Sizykz-b-[id number] catheter is again noted. Destructive expansile lesion of the left third rib is again noted. CONCLUSION: No evidence of pneumothorax following thoracentesis. Hypoaerated lungs with mild right basilar airspace disease. Expansile destructive lesion of the left third rib. Electronically signed by: Jett Kramer MD 01/13/2018 4:50 PM EST
--- NOTE | 2018-01-13 17:13 | US ---
EXAM DATE: 01/13/2018 4:57 PM EST AGE/SEX: 77 years / Female INDICATIONS: Right side pleural effusion. CLINICAL DATA: This is the patient's initial encounter. Patient reports that signs and symptoms have been present for 1 day and indicates a pain score of 1/10. MEDICAL/SURGICAL HISTORY: Carcinoma, lung. Carcinoma, breast. . Back surgery. Arm surgery. COMPARISON: . FLUID: Total volume of 800 cc of clear, yellow fluid was removed. Fluid was sent to lab for ordered studies. . . TECHNIQUE: Ultrasound guidance for thoracentesis. Thoracentesis. The risks, benefits, and alternatives to ultrasound guided thoracentesis were explained to the patien t in lay simple terms, including the risk of bleeding and infection. Written and verbal informed con sent was obtained. Appropriate area for right thoracentesis was marked under ultrasound guidance with the patient in the upright position. Overlying skin was prepped and draped in the usual sterile fashion and with local anesthetic, a dermatotomy was made with an 11 blade scalpel. A 6 Romanian thoracentesis catheter was placed in the pleural space and fluid was removed. Catheter was then removed and a sterile dressing applied. There were no immediate complications. The patient tolerated the procedure well and the lef t the ultrasound suite in stable condition. Chest radiograph is to be obtained. FINDINGS: Adequate fluid for thoracentesis. CONCLUSION: 1. Uncomplicated thoracentesis. Electronically signed by: Karthikeyan Lin MD 01/13/2018 5:12 PM EST
[2018-01-13 17:55] LABS: RBC,Pleural Fluid 912 /mm3 (0-0)
[2018-01-13 18:02] LABS: Eosinophils,Pleural Fluid 2 %; Lymphocytes,Pleural Fluid 50 %; Mesothelial,Pleural Fluid 2 %; Monocytes,Pleural Fluid 10 %; Neutrophils,Pleural Fluid 34 %
[2018-01-13 18:03] LABS: Total Protein,Pleural Fluid 4.8 gm/dL
--- NOTE | 2018-01-13 18:34 | P.PNPL ---
Subjective Interval history: 77 YOWF from [place] with metastatic lung ca Has large lung mass has pl effusion had Rt TC 800 cc fluid removed Breathing better Physical Exam Vital signs: Vital Signs 01/12/18 20:00 01/12/18 21:25 01/13/18 00:00 Temperature 98 F 97.7 F Pulse Rate 106 H 112 H 115 H Respiratory Rate 18 16 18 Blood Pressure 121/58 L 128/59 L Pulse Oximetry 92 L 91 L 01/13/18 08:00 01/13/18 09:00 01/13/18 12:00 Temperature 98.5 F 98.1 F Pulse Rate 100 H 92 H 97 H Respiratory Rate 18 16 Blood Pressure 129/71 109/69 Pulse Oximetry 92 L 95 01/13/18 16:00 Temperature 98.5 F Pulse Rate 110 H Respiratory Rate 18 Blood Pressure 132/78 Pulse Oximetry 95 Intake & Output 01/12/18 01/13/18 01/13/18 18:59 06:59 18:59 Intake Total 1160 / 1160 570 / 570 960 / 960 Balance 1160 / 1160 570 / 570 960 / 960 Intake: IV 200 / 200 450 / 450 Zosyn 4.5 GM Premix 4.5 gm In 200 / 200 200 / 200 100 ml @ 200 mls/hr IV.SIG Q6H NIC Rx#:[id number] Vancomycin Inj 1,000 MG In NS 250 / 250 Inj 250 ML @ 250 mls/hr IV.SIG Q24H NIC Rx#:[id number] Oral 960 / 960 120 / 120 960 / 960 Other: # Voids 3 2 3 Date of Last Bowel Movement 01/10/18 01/11/18 # Bowel Movements 1 GENERAL: Elderly Wf, NAD SKIN: Warm and dry. HEAD: Normocephalic. EYES: No scleral icterus. No injection or drainage. NECK: Supple, trachea midline. No JVD or lymphadenopathy. CARDIOVASCULAR: Regular rate and rhythm without murmurs, gallops, or rubs. RESPIRATORY: Breath sounds equal bilaterally. No accessory muscle use. GASTROINTESTINAL: Abdomen soft, non-tender, nondistended. MUSCULOSKELETAL: No cyanosis, or edema. BACK: Nontender without obvious deformity. No CVA tenderness. Assessment and Plan - Plan IMPRESSION: 1. Carcinoma of the lung with metastatic disease. She did not tolerate chemotherapy and immunotherapy and she has progression of the disease. 2. Pleural effusion. 3. Atelectasis with possible infiltrate. 4. 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 PLAN: Check pl fluid studies Hospice evaluating pt Pt decided to stay in this area for the winter Stable on RA
[2018-01-14] MEDS: Piperacil/Tazo 4.5 GM Premix 4.5 GM/100 ML BAG IV.SIG SCH ×2 (02:08→08:53)
[2018-01-14] MEDS: guaiFENesin 600 MG ER Tablet PO SCH (08:54)
--- NOTE | 2018-01-14 08:57 | P.PN ---
Subjective Interval history: This is a pleasant 77 y/o Female who came to Emergency room for evaluation of worsening Shortness of breath and weakness. 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 She states that she lives full-time in [place] and has been undergoing treatment there until October. She endorses several rounds of chemotherapy with different medications. She states that despite this chemotherapy her lung mass has continued to grow. She states that she saw her oncologist just before coming to [place] for the winter. She told him at that time that she does not wish to continue with chemotherapy treatment. She arrived here in mid December. On presentation she endorses occasional dizziness. She endorses chronic nonproductive cough. She endorses some swelling in the lower extremities. She endorses decreased appetite. She endorses dark stools which she attributes to taking a daily iron pill. She denies fever, chills, headaches, nausea, vomiting , chest pain, palpitations, abdominal pain, dysuria, weakness of the extremities. I spoke with the patient regarding her expectations for today's visit. She is hoping to be discharged. She is open to evaluation by another oncologist. She does not want hospice services at this time. discussed with patient and Nurse Miss Christianson, also her Daughter in law Mrs. Audrey López in the room patient accepted for Hospice. 01/13: Seen in her bedroom discussed with patient and relatives in the room they have elected to get Thoracentesis as recommended by nerve specialist doctor Valdemar and then will go to Hospice 01/14: Seen in her bedroom, she will go to Hospice today, no nausea, vomit or diarrhea. Physical Exam Vital signs: Vital Signs 01/13/18 09:00 01/13/18 12:00 01/13/18 16:00 Temperature 98.1 F 98.5 F Pulse Rate 92 H 97 H 110 H Respiratory Rate 16 18 Blood Pressure 109/69 132/78 Pulse Oximetry 95 95 01/13/18 19:40 01/13/18 20:45 01/13/18 23:36 Temperature 99.0 F 98.0 F Pulse Rate 116 H 127 H 126 H Respiratory Rate 17 20 17 Blood Pressure 134/67 115/64 Pulse Oximetry 97 96 01/14/18 01:12 Temperature Pulse Rate 105 H Respiratory Rate 20 Blood Pressure Pulse Oximetry Intake & Output 01/13/18 01/14/18 01/14/18 18:59 06:59 18:59 Intake Total 1160 / 1160 560 / 560 Balance 1160 / 1160 560 / 560 Weight 64.9 kg Intake: IV 200 / 200 200 / 200 Zosyn 4.5 GM Premix 4.5 gm In 200 / 200 200 / 200 100 ml @ 200 mls/hr IV.SIG Q6H NIC Rx#:[id number] Oral 960 / 960 360 / 360 Other: # Voids 3 3 Date of Last Bowel Movement 01/11/18 01/11/18 # Bowel Movements 0 Narrative: GENERAL: Well-nourished, thin white female in no acute distress. SKIN: Focused skin assessment warm/dry. Port implanted in the right chest. HEAD: Atraumatic. Normocephalic. EYES: Pupils equal and round. No scleral icterus. No injection or drainage. ENT: No nasal bleeding or discharge. Mucous membranes pink and moist. NECK: Trachea midline. No JVD. CARDIOVASCULAR: Regular rate and rhythm. No murmur appreciated. RESPIRATORY: No accessory muscle use. Clear to auscultation. Diminished breath sounds in RLL. GASTROINTESTINAL: Abdomen soft, non-tender, nondistended. Hepatic and splenic margins not palpable. MUSCULOSKELETAL: No obvious deformities. No clubbing. No cyanosis. Trace edema in the bilateral lower extremities. NEUROLOGICAL: Awake and alert. No obvious cranial nerve deficits. Motor grossly within normal limits. Normal speech. PSYCHIATRIC: Appropriate mood and affect; insight and judgment normal. Results - Labs CBC & Chem 7: 01/12/18 06:42 01/14/18 04:44 Laboratory Results - last 24 hr 01/13/18 01/13/18 01/14/18 16:00 16:00 04:44 Creatinine 0.79 Estimated GFR 71 L Pleural RBC 912 H Pleural Nuc Cells 150 H Pleural Neutrophils 34 Pleural Lymphocytes 50 Pleural Monocytes 10 Pleural Eosinophils 2 Pleural Histocytes 2 Pleural Mesothelial 2 Pleural Fluid Comment Pleural Total Protein 4.8 Pleural LDH 451 Pleural Glucose 101 - Imaging Impressions Chest X-Ray 01/13/18 00:00 CONCLUSION: No evidence of pneumothorax following thoracentesis. Hypoaerated lungs with mild right basilar airspace disease. Expansile destructive lesion of the left third rib. Thoracentesis Ultrasound 01/13/18 00:00 CONCLUSION: 1. Uncomplicated thoracentesis. - Procedures Thoracentesis obtained 800 ml of Pleural fluid. 11/07/18 Assessment and Plan - Plan 1. Respiratory insufficiency multifactorial secondary to Stage IV Lung cancer and Pneumonia 2. 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 Associated small to moderate right- sided pleural effusion with bulky right hilar and mediastinal adenopathy. 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 Oncology and nerve specialist following. status post Thoracentesis 800 ml obtained, will go to Hospice care at this time 3. Pneumonia Chest x-ray concerning for pneumonia. Patient was administered vancomycin, azithromycin and cefepime. Bronchodilator, Mucolytic, Incentive spirometry. following blood cultures, legionella antigen, Pneumococcal antigen. O2 sats 94% on room air with respiratory rate of 20. continue Vancomycin and Zosyn. recommended by nerve specialist for Thoracentesis after the procedure the patient wants to go on Hospice. will continue Azithromycin for five days. DVT prophylaxis with Heparin Code Status: DNR Discussed Condition With: Patient, her and nurse Miss Bradley. Discharge Planning: Discharge to Hospice.
[2018-01-14] MEDS: Vancomycin Inj 1,000 MG in Sodium Chlor 0.9% Inj 250 ML IV.SIG SCH ×2 (09:21→10:21)
[2018-01-14] MEDS ORDERED: Famotidine PF Inj 20 MG/2 ML Vial IV.PUSH ONE (10:43)
[2018-01-14 10:53] VITALS: BP 110/56; TEMP 98; O2SAT 93
[2018-01-14 12:12] VITALS: PULSE 110; RESP 18
--- NOTE | 2018-01-14 15:00 | P.DS ---
Date of admission: 01/11/18 20:28 Primary care physician: UNKNOWN Attending physician on discharge: Navin Bennett Anticipated date of discharge: 01/14/18 Brief History from admission: This is a pleasant 77 y/o Female who came to Emergency room for evaluation of worsening Shortness of breath and weakness. 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 She states that she lives full-time in [place] and has been undergoing treatment there until October. She endorses several rounds of chemotherapy with different medications. She states that despite this chemotherapy her lung mass has continued to grow. She states that she saw her oncologist just before coming to [place] for the winter. She told him at that time that she does not wish to continue with chemotherapy treatment. She arrived here in mid December. On presentation she endorses occasional dizziness. She endorses chronic nonproductive cough. She endorses some swelling in the lower extremities. She endorses decreased appetite. She endorses dark stools which she attributes to taking a daily iron pill. She denies fever, chills, headaches, nausea, vomiting , chest pain, palpitations, abdominal pain, dysuria, weakness of the extremities. I spoke with the patient regarding her expectations for today's visit. She is hoping to be discharged. She is open to evaluation by another oncologist. She does not want hospice services at this time. discussed with patient and Nurse Miss Christianson, also her Daughter in law Mrs. Audrey López in the room patient accepted for Hospice. DS: Diagnosis - Discharge Diagnosis (1) Lung cancer Status: Acute (2) Pleural effusion Status: Acute (3) Pneumonia Status: Acute (4) Shortness of breath Status: Acute (5) Weakness Status: Acute DS: Medications - Discharge Medications Prescriptions: azithromycin [Zithromax] 500 mg PO DAILY #5 tab budesonide-formoterol [Symbicort] 2 puff INHALATION Q12H #1 bottle famotidine 20 mg PO DAILY #30 tab guaifenesin [Mucinex] 600 mg PO BID #30 tab metoclopramide HCl 5 mg PO TID PRN #14 tab PRN Reason: Nausea And Vomiting DS: Summary Hospital Course: This is a pleasant 77 y/o Female who came to Emergency room for evaluation of worsening Shortness of breath and weakness. 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 She states that she lives full-time in [place] and has been undergoing treatment there until October. She endorses several rounds of chemotherapy with different medications. She states that despite this chemotherapy her lung mass has continued to grow. She states that she saw her oncologist just before coming to [place] for the winter. She told him at that time that she does not wish to continue with chemotherapy treatment. She arrived here in mid December. On presentation she endorses occasional dizziness. She endorses chronic nonproductive cough. She endorses some swelling in the lower extremities. She endorses decreased appetite. She endorses dark stools which she attributes to taking a daily iron pill. She denies fever, chills, headaches, nausea, vomiting , chest pain, palpitations, abdominal pain, dysuria, weakness of the extremities. I spoke with the patient regarding her expectations for today's visit. She is hoping to be discharged. She is open to evaluation by another oncologist. She does not want hospice services at this time. discussed with patient and Nurse Miss Christianson, also her Daughter in law Mrs. Audrey López in the room patient accepted for Hospice. 01/13: Seen in her bedroom discussed with patient and relatives in the room they have elected to get Thoracentesis as recommended by fitness specialist doctor Valdemar and then will go to Hospice 01/14: Seen in her bedroom, she will go to Hospice today, no nausea, vomit or diarrhea. Assessment and Plan - Plan 1. Respiratory insufficiency multifactorial secondary to Stage IV Lung cancer and Pneumonia 2. 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 Associated small to moderate right- sided pleural effusion with bulky right hilar and mediastinal adenopathy. 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 Oncology and fitness specialist following. status post Thoracentesis 800 ml obtained, will go to Hospice care at this time 3. Pneumonia Chest x-ray concerning for pneumonia. Patient was administered vancomycin, azithromycin and cefepime. Bronchodilator, Mucolytic, Incentive spirometry. following blood cultures, legionella antigen, Pneumococcal antigen. O2 sats 94% on room air with respiratory rate of 20. continue Vancomycin and Zosyn. recommended by fitness specialist for Thoracentesis after the procedure the patient wants to go on Hospice. will continue Azithromycin for five days. DVT prophylaxis with Heparin Code Status: DNR Discussed Condition With: Patient, her and nurse Miss Bradley. Discharge Planning: Discharge to Hospice. - Time Spent with Patient Total time spent providing and/or coordinating discharge services: Less than 30 minutes - Quality: VTE Deep Vein Thrombosis/Pulmonary Embolism Present on Admission: No Exam Vital signs: Vital Signs 01/13/18 16:00 01/13/18 19:40 01/13/18 20:45 Temperature 98.5 F 99.0 F Pulse Rate 110 H 116 H 127 H Respiratory Rate 18 17 20 Blood Pressure 132/78 134/67 Pulse Oximetry 95 97 01/13/18 23:36 01/14/18 01:12 01/14/18 08:00 Temperature 98.0 F 98 F Pulse Rate 126 H 105 H 119 H Respiratory Rate 17 20 20 Blood Pressure 115/64 110/56 L Pulse Oximetry 96 93 L 01/14/18 09:14 01/14/18 12:11 Temperature Pulse Rate 114 H 110 H Respiratory Rate 17 18 Blood Pressure Pulse Oximetry Intake & Output 01/13/18 01/14/18 01/14/18 18:59 06:59 18:59 Intake Total 1160 / 1160 560 / 560 Balance 1160 / 1160 560 / 560 Weight 64.9 kg Intake: IV 200 / 200 200 / 200 Zosyn 4.5 GM Premix 4.5 gm In 200 / 200 200 / 200 100 ml @ 200 mls/hr IV.SIG Q6H NIC Rx#:[id number] Oral 960 / 960 360 / 360 Other: # Voids 3 3 Date of Last Bowel Movement 01/11/18 01/11/18 01/11/18 # Bowel Movements 0 Narrative: GENERAL: Well-nourished, thin white female in no acute distress. SKIN: Focused skin assessment warm/dry. Port implanted in the right chest. HEAD: Atraumatic. Normocephalic. EYES: Pupils equal and round. No scleral icterus. No injection or drainage. ENT: No nasal bleeding or discharge. Mucous membranes pink and moist. NECK: Trachea midline. No JVD. CARDIOVASCULAR: Regular rate and rhythm. No murmur appreciated. RESPIRATORY: No accessory muscle use. Clear to auscultation. Diminished breath sounds in RLL. GASTROINTESTINAL: Abdomen soft, non-tender, nondistended. Hepatic and splenic margins not palpable. MUSCULOSKELETAL: No obvious deformities. No clubbing. No cyanosis. Trace edema in the bilateral lower extremities. NEUROLOGICAL: Awake and alert. No obvious cranial nerve deficits. Motor grossly within normal limits. Normal speech. PSYCHIATRIC: Appropriate mood and affect; insight and judgment normal. Results Procedures completed during hospitalization: Thoracentesis obtained 800 ml of Pleural fluid. 01/13/18 Labs on day of discharge: Labs from last 24 hours 01/14/18 01/13/18 01/13/18 04:44 16:00 16:00 Creatinine 0.79 Estimated GFR 71 L Pleural RBC 912 H Pleural Nuc Cells 150 H Pleural Neutrophils 34 Pleural Lymphocytes 50 Pleural Monocytes 10 Pleural Eosinophils 2 Pleural Histocytes 2 Pleural Mesothelial 2 Pleural Fluid Comment Pleural Total Protein 4.8 Pleural LDH 451 Pleural Glucose 101 Preliminary micro results at discharge 01/13/18 16:00 Body Fluid Culture - Preliminary Fluid - Pleural fluid No growth in 24 hours - Impressions ITS Impressions Chest CTA 01/11/18 16:36 CONCLUSION: 1. No CT evidence for pulmonary artery embolism as questioned. 2. Large right perihilar/central lung mass with resultant obstruction of the right lower lobe bronchus and right lower lobe collapse. 3. Associated small to moderate right-sided pleural effusion with bulky right hilar and mediastinal adenopathy. 4. 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 Head CT 01/11/18 16:36 CONCLUSION: 1. Senescent changes with mild to moderate periventricular ischemic white matter demyelination. 2. Otherwise, no acute intracranial abnormality. . Chest X-Ray 01/13/18 00:00 CONCLUSION: No evidence of pneumothorax following thoracentesis. Hypoaerated lungs with mild right basilar airspace disease. Expansile destructive lesion of the left third rib. Thoracentesis Ultrasound 01/13/18 00:00 CONCLUSION: 1. Uncomplicated thoracentesis. Discharge Plan - Discharge Disposition Patient Disposition: 50 Hospice/Home - Discharge Condition Condition: Stable - Discharge Order Discharge Orders: Discharge Order (Routine); Ordered 01/14/18 Ordered By: Navin Bennett - Discharge Details Anticipated Discharge Date: 01/14/18 Discharge Comment: Follow up with printing specialist doctor Vicky William in one week - Physicians Team Primary Care Provider: UNKNOWN, Attending Provider: Navin Bennett Other Providers: Vicky William ; Rajeev Aldrich MD ; Justus Steen MD
[2018-01-15] MEDS ORDERED: Pharmacy Ordered Lab Info OTHER ONE (19:45)
== END 2018-01-14 13:38 | disposition hospice, home (50) ==
LOC: NEPC 12:53 → NEDA 12:53 → OBSVTOIN 20:21 → N06 22:23
PROVIDERS: ADMIT Internal Medicine; ATTEND Internal Medicine